=== PATIENT | male | born 1980 | race Caucasian/White ===

== ENCOUNTER 2018-03-16 13:31 | Emergency (ER) | payer OTHER, BC ==
[2018-03-16] MEDS: FLUORESCEIN OPHTH 1 MG STRIP OS (13:00)
[2018-03-16] MEDS: IBUPROFEN 600 MG TAB PO (13:23)
[2018-03-16] MEDS: ERYTHROMYCIN OPHTH OINT OS (13:23)
[2018-03-16] MEDS: TETRACAINE 0.5% OPHTH SOLN 4ML OS (13:24)
== END 2018-03-16 13:40 | disposition home or self-care (01) ==
LOC: M ED 13:31
DX: T15.02XA Foreign body in cornea, left eye, initial encounter (principal); X58.XXXA Exposure to other specified factors, initial encounter; Y92.89 Other specified places as the place of occurrence of the external cause; Z79.899 Other long term (current) drug therapy
CPT/HCPCS: 99283